=== PATIENT | female | born 1955 | race Caucasian/White ===

== ENCOUNTER → 2017-03-18 | Outpatient (CLI) | payer OTHER ==
[~2017-03-18] MED LIST: ASPIRIN PO; CENTRUM PO; FISH OIL 1,2001 CAP PO; FOLATE PO; FOLIC ACID PO; LISINOPRIL PO; LISINOPRIL20 MG PO; MAALOX SUSPENS355 ML PO; MICRO-K10 MEQ PO; MULTIVITAMIN1 UDCAP PO; PRILOSEC PO; PROTONIX PO; THIAMINE HCL100 MG PO; VISTARIL PO
--- NOTE | ~2017-03-18 | CR181 ---
[facility] A Service of [facility] RADIOLOGY TEXT RESULTS PATIENT: MIKA GUEVARA LOCATION: [facility] : 57 UNIT #: [id number] AGE: [address]: Carolyn Reardon SEX: F ORDER DR: [id number] [place] [id number] O MR#: [id number] Acc #: [id number] NAME: MIKA GUEVARA : 1955 SEX: F STUDY DATE/TIME: 03/18/2017 13:19 UNIT: [facility] ROOM: STUDY DESCRIPTION: CR Lumbar Spine 2 or 3 Views Attending Physician: Carolyn Reardon A.P.R.N. Referring Physician: Carolyn Reardon A.P.R.N. Ordering Physician: Carolyn Reardon A.P.R.N. Primary Care Physician: Carolyn Reardon A.P.R.N. MEDICAL IMAGING REPORT This report is preliminary unless electronic signature is present. EXAM Lumbar spine series 3 views 03/18/2017 HISTORY Back and leg pain, sciatica for 3 weeks. FINDINGS There is a relative osteopenia, and mild discogenic change but alignment is normal and there is no fracture or acute abnormality. Dictated by... John Cotter M.D. THIS IS AN ELECTRONICALLY VERIFIED REPORT John Cotter M.D. at 03/19/2017 2:16 PM TEV/pcl TD: 03/18/2017 19:37 JOB #: [id number] MEDICAL IMAGING REPORT Page 1 of 1
== END | disposition home or self-care (01) ==
LOC: SRAD 13:13
DX: M54.41 Lumbago with sciatica, right side (principal)
CPT/HCPCS: 72100